=== PATIENT | male | born 1955 | race Caucasian/White ===

== ENCOUNTER 2016-07-08 18:25 | Emergency (ER) | payer SELFPAY ==
[~2016-07-08] VITALS: Ht 182.9 cm; Wt 95.0 kg
[2016-07-08 18:26] VITALS: BP 144/97; PULSE 104; RESP 14; TEMP 101.4; O2SAT 94
== END 2016-07-08 20:18 | disposition left against medical advice (07) ==
LOC: NED 18:25
DX: I10 Essential (primary) hypertension (principal)
CPT/HCPCS: 99281

== ENCOUNTER 2016-07-09 06:57 | Inpatient (IN) | payer BC ==
[~2016-07-09] VITALS: Ht 180.3 cm; Wt 93.4 kg
[2016-07-09] VITALS (8 sets, daily range): BP systolic 128–158; BP diastolic 66–89; PULSE 67–91; RESP 16–22; TEMP 98–99.6; O2SAT 95–98
[2016-07-09 07:42] LABS: AUTOMATED NEUTROPHIL # 9.1 TH/MM3 (1.8-7.7); BASOPHIL # 0.1 TH/MM3 (0-0.2); BASOPHIL % 0.6 % (0.0-2.0); EOSINOPHIL # 0.1 TH/MM3 (0-0.4); EOSINOPHIL % 0.7 % (0.0-4.0); HEMATOCRIT 43.4 % (39.0-51.0); HEMO FLAGS DIFF FINAL; LYMPH % 11.5 % (9.0-44.0); LYMPHOCYTE # 1.4 TH/MM3 (1.0-4.8); MEAN CORPUSCULAR HEMOGLOBIN 30.4 PG (27.0-34.0); MEAN CORPUSCULAR HGB CONC 34.9 % (32.0-36.0); MONO % 9.9 % (0.0-8.0); NEUT % 77.3 % (16.0-70.0); PLATELET COUNT 244 TH/MM3 (150-450); RED BLOOD COUNT 4.99 MIL/MM3 (4.50-5.90); WHITE BLOOD COUNT 11.8 TH/MM3 (4.0-11.0)
[2016-07-09 07:52] LABS: ALT (GPT) 223 U/L (12-78); ANION GAP 9 MEQ/L (5-15); AST (GOT) 155 U/L (15-37); BICARBONATE 24.3 MEQ/L (21.0-32.0); BLOOD UREA NITROGEN 9 MG/DL (7-18); CHLORIDE 97 MEQ/L (98-107); GLOMERULAR FILTRATION RATE 57 ML/MIN (>89); POTASSIUM 3.9 MEQ/L (3.5-5.1); SODIUM (NA) 130 MEQ/L (136-145)
[2016-07-09 07:54] LABS: ALKALINE PHOSPHATASE 130 U/L (45-117); TOTAL BILIRUBIN ADULT 9.9 MG/DL (0.2-1.0)
[2016-07-09 08:07] LABS: BACTERIA, URINE RARE /hpf; BLOOD, URINE SMALL (NEG); GLUCOSE,URINE 70 mg/dL (NEG); GRANULAR CAST, URINE 3 /lpf; HYALINE CAST, URINE 42 /lpf (RARE); KETONE, URINE 10 mg/dL (NEG); MUCUS URINE MOD /lpf (OCC); NITRITE,URINE NEG (NEG); SQUAMOUS EPITHELIAL CELL URINE 1 /hpf (0-5)
[2016-07-09 08:15] LABS: URINE COLOR AMBER (YELLW/STRAW)
[2016-07-09 08:16] LABS: COMMENT (UR) CULT NOT INDICATED; CULTURE IF INDICATED CULT NOT INDICATED
--- NOTE | 2016-07-09 10:57 | RADRPT ---
EXAM DATE/TIME: 07/09/2016 09:53 [facility] COMPARISON: No previous studies available for comparison. INDICATIONS : Right upper quandrant pain. MEDICAL HISTORY : Hypertension. Fever. SURGICAL HISTORY : None. ENCOUNTER: Initial ACUITY: 4-6 months PAIN SCORE: 0/10 LOCATION: Right upper quadrant MEASUREMENTS: LIVER: 17.4 cm length COMMON DUCT: 4 mm RIGHT KIDNEY: 10.8 x 7.0 x 6.4 cm FINDINGS: LIVER: Echogenic liver suggesting fatty infiltration. COMMON DUCT: No intraluminal mass or stone visualized. GALLBLADDER: 2 gallstones evident and otherwise benign appearing gallbladder. PANCREAS: Obscured by bowel gas RIGHT KIDNEY: No evidence of hydronephrosis, stone, or mass. CONCLUSION: Gallstones otherwise an negative appearing gallbladder. Trace fluid in right upper q uadrant. Pillo Chen MD FACR on July 09, 2016 at 10:55 Board Certified Radiologist. This report was verified electronically.
[2016-07-09] MEDS ORDERED: AMPICILLIN-SULBACTAM INJ 3 GM in SODIUM CHLORIDE 0.9% INJ 100 ML IV ONE (11:00)
[2016-07-09] MEDS ORDERED: IOHEXOL 350 MG/ML 10 ML VIAL (for RAD DIAG) IV ONE (11:04)
--- NOTE | 2016-07-09 11:23 | PD ---
HPI Chief Complaint: Abdominal Pain Time Seen by Provider: 09:34 Travel History International Travel<30 days: No Contact w/Intl Traveler<30days: No Traveled to known affect area: No History of Present Illness HPI Patient is a 7-year-old male presents emergency department for intermittent right upper quadrant abdominal pain for the past month associated with intermittent fevers. Patient states he went to an urgent care yesterday had a fever of 101.5 and was referred to emergency department for further workup. On arrival here he states the wait was too long and decided to leave without being seen. He returns this morning for evaluation. Patient is also been concerned because he's had very dark urine. He states anytime he eats any food his pain is worsened. Denies any previous liver issues denies any Tylenol ingestion. PFSH Past Medical History Cardiovascular Problems: Yes (HTN) Diminished Hearing: No GERD: Yes Hypertension: Yes Tetanus Vaccination: > 5 Years Influenza Vaccination: No Social History Alcohol Use: Yes (4 x a week) Tobacco Use: No Substance Use: No Allergies-Medications (Allergen,Severity, Reaction): Coded Allergies: No Known Allergies (Unverified , 07/09/16) Reported Meds & Prescriptions Reported Meds & Active Scripts Active No Active Prescriptions or Reported Medications Review of Systems Except as stated in HPI: all other systems reviewed are Neg Physical Exam Narrative GENERAL: Well-developed well-nourished in no apparent distress. SKIN: Warm and dry. HEAD: Atraumatic. Normocephalic. EYES: Pupils equal and round. Positive scleral icterus. No injection or drainage. ENT: No nasal bleeding or discharge. Mucous membranes pink and moist. NECK: Trachea midline. No JVD. CARDIOVASCULAR: Regular rate and rhythm. No murmur appreciated. RESPIRATORY: No accessory muscle use. Clear to auscultation. Breath sounds equal bilaterally. GASTROINTESTINAL: Abdomen soft, minimally tender in the right upper quadrant negative Queen sign. nondistended. Hepatic and splenic margins not palpable. No spider angiomata. MUSCULOSKELETAL: No obvious deformities. No clubbing. No cyanosis. No edema. NEUROLOGICAL: Awake and alert. No obvious cranial nerve deficits. Motor grossly within normal limits. Normal speech. PSYCHIATRIC: Appropriate mood and affect; insight and judgment normal. Data Data Last Documented VS Vital Signs Date Time Temp Pulse Resp B/P Pulse Ox O2 Delivery O2 Flow Rate FiO2 07/09/16 10:22 98 Room Air 07/09/16 09:33 72 20 156/82 07/09/16 06:59 99.0 Orders Complete Blood Count With Diff (07/09/16 07:12) Comprehensive Metabolic Panel (07/09/16 07:12) Urinalysis - C+S If Indicated (07/09/16 07:12) Iv Access Insert/Monitor (07/09/16 07:12) Oxygen Administration (07/09/16 07:12) Oximetry (07/09/16 07:12) Lipase (07/09/16 07:12) Ct Abd/Pel W Iv Contrast(Rout) (07/09/16 ) Ammonia (07/09/16 09:45) Lactic Acid (07/09/16 09:45) Us Abdomen Gallbladder (07/09/16 ) Blood Culture (07/09/16 09:46) Tylenol (Acetaminophen) (07/09/16 10:06) Ampicillin-Sulbactam Inj (Unasyn Inj) (07/09/16 11:00) Iohexol 350 Inj (Omnipaque 350 Inj) (07/09/16 11:04) Act Partial Throm Time (Ptt) (07/09/16 11:22) Prothrombin Time / Inr (Pt) (07/09/16 11:22) Admit Order (Ed Use Only) (07/09/16 ) Labs Laboratory Tests Test 07/09/16 07/09/16 07:23 10:15 White Blood Count 11.8 TH/MM3 Red Blood Count 4.99 MIL/MM3 Hemoglobin 15.2 GM/DL Hematocrit 43.4 % Mean Corpuscular Volume 87.0 FL Mean Corpuscular Hemoglobin 30.4 PG Mean Corpuscular Hemoglobin 34.9 % Concent Red Cell Distribution Width 14.0 % Platelet Count 244 TH/MM3 Mean Platelet Volume 9.0 FL Neutrophils (%) (Auto) 77.3 % Lymphocytes (%) (Auto) 11.5 % Monocytes (%) (Auto) 9.9 % Eosinophils (%) (Auto) 0.7 % Basophils (%) (Auto) 0.6 % Neutrophils # (Auto) 9.1 TH/MM3 Lymphocytes # (Auto) 1.4 TH/MM3 Monocytes # (Auto) 1.2 TH/MM3 Eosinophils # (Auto) 0.1 TH/MM3 Basophils # (Auto) 0.1 TH/MM3 CBC Comment DIFF FINAL Differential Comment Urine Color CHELSEA Urine Turbidity HAZY Urine pH 6.0 Urine Specific [place] 1.016 Urine Protein 30 mg/dL Urine Glucose (UA) 70 mg/dL Urine Ketones 10 mg/dL Urine Occult Blood SMALL Urine Nitrite NEG Urine Bilirubin MOD Urine Urobilinogen 2.0 MG/DL Urine Leukocyte Esterase NEG Urine RBC 1 /hpf Urine WBC 3 /hpf Urine Squamous Epithelial 1 /hpf Cells Urine Bacteria RARE /hpf Urine Hyaline Casts 42 /lpf Urine Granular Casts 3 /lpf Urine Mucus MOD /lpf Microscopic Urinalysis Comment CULT NOT INDICATED Sodium Level 130 MEQ/L Potassium Level 3.9 MEQ/L Chloride Level 97 MEQ/L Carbon Dioxide Level 24.3 MEQ/L Anion Gap 9 MEQ/L Blood Urea Nitrogen 9 MG/DL Creatinine 1.29 MG/DL Estimat Glomerular Filtration 57 ML/MIN Rate Random Glucose 151 MG/DL Calcium Level 9.0 MG/DL Iron Level 28 MCG/DL Total Iron Binding Capacity 304 MCG/DL Percent Iron Saturation 9.2 % Ferritin 1562 NG/ML Total Bilirubin 9.9 MG/DL Aspartate Amino Transf 155 U/L (AST/SGOT) Alanine Aminotransferase 223 U/L (ALT/SGPT) Alkaline Phosphatase 130 U/L Total Protein 7.9 GM/DL Albumin 3.5 GM/DL Lipase 172 U/L Acetaminophen Level LESS THAN 2.0 MCG/ML Lactic Acid Level 1.2 mmol/L Ammonia LESS THAN 10 MCMOL/L MDM Medical Decision Making Medical Screen Exam Complete: Yes Emergency Medical Condition: Yes Differential Diagnosis Ascending cholangitis, cholecystitis, acute hepatitis. Narrative Course Patient was roomed emergency department, he appears well in no apparent distress. He is minimally tender in the right upper quadrant with fever yesterday (no fevers here today) as well as jaundice. He was covered with Unasyn for possible ascending cholangitis. He does not meet SIRS criteria. Patient states he only has abdominal pain when he eats and is not having abdominal pain now. Patient was discussed with Dr. Casetllon for admission for new onset liver failure as well as inflammatory changes surrounding the liver and possible diverticulitis at hepatic flexure. Last 24 hours Impressions Gall Bladder Ultrasound 07/09/16 0000 Signed Impressions: Service Date/Time: Saturday, July 09, 2016 09:53 - CONCLUSION: Gallstones otherwise an negative appearing gallbladder. Trace fluid in right upper quadrant. Pillo Chen MD FACR Abdomen/Pelvis CT 07/09/16 0000 Signed Impressions: Service Date/Time: Saturday, July 09, 2016 11:02 - CONCLUSION: 1. Pericolic inflammatory changes in the region of the hepatic flexure with focal wall thickening and apparent inflamed diverticulum consistent with acute diverticulitis of the hepatic flexure. No pericolic abscess is noted. 2. Enlarged fatty liver. 3. Cholelithiasis. 4. Enlarged prostate. 5. 18 mm nonspecific mass within the inferior aspect of the spleen. 6. Fibrotic scarring and/or atelectasis within the right lung base. Brock Orta MD Diagnosis Primary Impression: Acute liver failure Qualified Code: K72.00 - Acute liver failure without hepatic coma Additional Impressions: Acute diverticulitis Fever Admitting Information Admitting Physician Requests: Admit Scripts No Active Prescriptions or Reported Meds Condition: Stable Brock Rg MD Jul 09, 2016 11:23
--- NOTE | 2016-07-09 11:26 | RADRPT ---
EXAM DATE/TIME: 07/09/2016 11:02 [facility] COMPARISON: US ABDOMEN - GALLBLADDER, July 09, 2016, 9:53. INDICATIONS : Intermittent upper abdominal pain x 6 months. IV CONTRAST: 80 cc Omnipaque 350 (iohexol) IV ORAL CONTRAST: No oral contrast ingested. RADIATION DOSE: 8.59 CTDIvol (mGy) MEDICAL HISTORY : Gastroesophageal reflux disease. Hypertension. SURGICAL HISTORY : None. ENCOUNTER: Initial ACUITY: 4 - 6 months PAIN SCALE: 2/10 LOCATION: Right upper quadrant TECHNIQUE: Volumetric scanning of the abdomen and pelvis was performed. Using automated exposure control and ad justment of the mA and/or kV according to patient size, radiation dose was kept as low as reasonably achievable to obtain optimal diagnostic quality images. FINDINGS: LOWER LUNGS: Fibrotic scarring and/or atelectasis is noted within the right lung base. LIVER: There is diffuse fatty infiltration of the enlarged liver without focal lesion. There is no dilation of the biliary tree. The gallbladder is nondistended and contains calcified stones.. SPLEEN: There is an 18 mm nonspecific mass within the inferior aspect of the spleen. PANCREAS: Within normal limits. KIDNEYS: Normal in size and shape. There is no mass, stone or hydronephrosis. ADRENAL GLANDS: Within normal limits. VASCULAR: There is no aortic aneurysm. BOWEL/MESENTERY: There is pericolic inflammatory changes in the region of the hepatic flexure with focal wall thickeni ng and apparent inflamed diverticulum consistent with acute diverticulitis of the hepatic flexure. No pericolic abscess is noted. The appendix is normal. ABDOMINAL WALL: Within normal limits. RETROPERITONEUM: There is no lymphadenopathy. BLADDER: No wall thickening or mass. REPRODUCTIVE: The prostate gland is enlarged. INGUINAL: There is no lymphadenopathy or hernia. MUSCULOSKELETAL: Within normal limits for patient age. CONCLUSION: 1. Pericolic inflammatory changes in the region of the hepatic flexure with focal wall thickening and apparent inflamed diverticulum consistent with acute diverticulitis of the hepatic flexure. No peric olic abscess is noted. 2. Enlarged fatty liver. 3. Cholelithiasis. 4. Enlarged prostate. 5. 18 mm nonspecific mass within the inferior aspect of the spleen. 6. Fibrotic scarring and/or atelectasis within the right lung base. Brock Orta MD on July 09, 2016 at 11:15 Board Certified Radiologist. This report was verified electronically.
[2016-07-09] MEDS ORDERED: ACETAMINOPHEN 325 MG TAB PO PRN ×2 (12:30)
[2016-07-09] MEDS ORDERED: NALOXONE HCL 0.4 MG/ML AMP IV PRN (12:30)
[2016-07-09] MEDS ORDERED: MORPHINE SULFATE 4 MG/ML INJ IV PRN (12:30)
[2016-07-09] MEDS ORDERED: SODIUM CHLORIDE 0.9% FLUSH 5 ML FLUSH FLUSH PRN (12:30)
[2016-07-09] MEDS ORDERED: MAGNESIUM HYDROXIDE SUSP 30 ML CUP PO PRN (13:00)
[2016-07-09] MEDS ORDERED: ONDANSETRON HCL 4 MG/2 ML VIAL IVP PRN (13:00)
[2016-07-09 13:13] LABS: APTT (PATIENT) 26.9 SEC (24.3-30.1); INTERNATIONAL NORMALIZED RATIO 1.1 RATIO; PROTHROMBIN TIME - PATIENT 12.4 SEC (9.8-11.6)
[2016-07-09] MEDS: ENOXAPARIN SODIUM 40 MG/0.4 ML SYRINGE SQ SCH (14:35)
[2016-07-09] MEDS: SODIUM CHLOR 0.9% 1000 ML INJ 1,000 ML IV SCH ×2 (14:35→21:36)
--- NOTE | 2016-07-09 16:32 | PD.CONS ---
HPI History of Present Illness This is a 61 year old who was referred from a walk in clinic for evaluation of abdominal pain, jaundice, and fevers. The patient reports that both him and his fiance have been fighting flu-like symptoms with generalized malaise, fatigue, and intermittent fevers for the past month. Prior to that, the patient reports that he has been having intermittent nausea, vomiting, and epigastric pain for the past 6-8 months. He reports that the pain is a pressure like pain in his epigastric area that radiates to his RUQ with intermittent nausea/vomiting. He was also have reflux with this and states that his symptoms were much worse if he had any acidic foods such as marinara and when he would lay down at night. His notes that this also seems to be happening more on the weekends, when he does drink ETOH. He started taking Prilosec and he does note that his symptoms have been much better since starting this. He reports that he had a big ice cream [id number] brownie and then went to bed after the game. He woke up that night with severe epigastric pain radiating to his RUQ. He did not have any nausea or vomiting with this. He had a few loose stools last week, but states that he does tend to have "soft stools" as long as he can remember. He has not seen any blood or mucous in his stool. He denies any weight loss. He does drink about 6-7 beers per day on the weekends and also drinks a few alcoholic drinks on and Fridays. He reports that he was told many years ago that he had mildly elevated LFTs but denies ever being told that he has liver cirrhosis or hepatitis. He denies having any hepatitis, tattoo's, hx of IVDA, blood transfusions. He denies any family hx of liver disease. He has been taking Dayquil and Nyquil- always as prescribed, but has taken this on the weekend while he was drinking. He also took Tylenol pm for a few nights for joing and back pain. He does not take any herbal supplements. (Gela Flynn) PFSH Past Medical History GERD HTN Fatty liver Hx of elevated LFTs Past Surgical History Right bunionectomy (Gela Flynn) Coded Allergies: No Known Allergies (Unverified , 07/09/16) Medications Allergies Coded Allergies Type Severity Reaction Last Updated Verified No Known Allergies 07/09/16 No Active Scripts Medications Dose Route/Sig Days Date Category No Active Prescriptions or Reported Medications Rx Family History Brother CAD Mother from stroke Father from complications from diabetes. Social History No tobacco (Gela Flynn) Review of Systems Constitutional: COMPLAINS OF: Fatigue, Fever, Chills, DENIES: Weight loss Respiratory: DENIES: Cough Cardiovascular: DENIES: Chest pain Gastrointestinal: COMPLAINS OF: Abdominal pain, Diarrhea (loose/soft stools), Nausea, Vomiting, Heartburn, DENIES: Black stools, Bloody stools, Constipation , Hematemesis Musculoskeletal: COMPLAINS OF: Joint pain, Back pain Integumentary: COMPLAINS OF: Abnormal pigmentation, Jaundice, DENIES: Pruritus Hematologic/lymphatic: DENIES: Bruising Neurologic: COMPLAINS OF: Headache Psychiatric: DENIES: Confusion (Gela Flynn) GI Exam Vitals I&O Vital Signs Date Time Temp Pulse Resp B/P Pulse Ox O2 Delivery O2 Flow Rate FiO2 07/09/16 14:30 72 22 156/84 96 Room Air 07/09/16 12:30 72 17 129/72 96 Room Air 07/09/16 10:22 98 Room Air 07/09/16 09:33 72 20 156/82 97 Room Air 07/09/16 06:59 99.0 91 16 146/89 95 Imaging Last Impressions Gall Bladder Ultrasound 07/09/16 0000 Signed Impressions: Service Date/Time: Saturday, July 09, 2016 09:53 - CONCLUSION: Gallstones otherwise an negative appearing gallbladder. Trace fluid in right upper quadrant. Pillo Chen MD FACR Abdomen/Pelvis CT 07/09/16 0000 Signed Impressions: Service Date/Time: Saturday, July 09, 2016 11:02 - CONCLUSION: 1. Pericolic inflammatory changes in the region of the hepatic flexure with focal wall thickening and apparent inflamed diverticulum consistent with acute diverticulitis of the hepatic flexure. No pericolic abscess is noted. 2. Enlarged fatty liver. 3. Cholelithiasis. 4. Enlarged prostate. 5. 18 mm nonspecific mass within the inferior aspect of the spleen. 6. Fibrotic scarring and/or atelectasis within the right lung base. Brock Orta MD Laboratory Test 07/09/16 07/09/16 07/09/16 07:23 10:15 12:40 White Blood Count 11.8 TH/MM3 Red Blood Count 4.99 MIL/MM3 Hemoglobin 15.2 GM/DL Hematocrit 43.4 % Mean Corpuscular Volume 87.0 FL Mean Corpuscular Hemoglobin 30.4 PG Mean Corpuscular Hemoglobin 34.9 % Concent Red Cell Distribution Width 14.0 % Platelet Count 244 TH/MM3 Mean Platelet Volume 9.0 FL Neutrophils (%) (Auto) 77.3 % Lymphocytes (%) (Auto) 11.5 % Monocytes (%) (Auto) 9.9 % Eosinophils (%) (Auto) 0.7 % Basophils (%) (Auto) 0.6 % Neutrophils # (Auto) 9.1 TH/MM3 Lymphocytes # (Auto) 1.4 TH/MM3 Monocytes # (Auto) 1.2 TH/MM3 Eosinophils # (Auto) 0.1 TH/MM3 Basophils # (Auto) 0.1 TH/MM3 CBC Comment DIFF FINAL Differential Comment Urine Color CHELSEA Urine Turbidity HAZY Urine pH 6.0 Urine Specific [place] 1.016 Urine Protein 30 mg/dL Urine Glucose (UA) 70 mg/dL Urine Ketones 10 mg/dL Urine Occult Blood SMALL Urine Nitrite NEG Urine Bilirubin MOD Urine Urobilinogen 2.0 MG/DL Urine Leukocyte Esterase NEG Urine RBC 1 /hpf Urine WBC 3 /hpf Urine Squamous Epithelial 1 /hpf Cells Urine Bacteria RARE /hpf Urine Hyaline Casts 42 /lpf Urine Granular Casts 3 /lpf Urine Mucus MOD /lpf Microscopic Urinalysis Comment CULT NOT INDICATED Sodium Level 130 MEQ/L Potassium Level 3.9 MEQ/L Chloride Level 97 MEQ/L Carbon Dioxide Level 24.3 MEQ/L Anion Gap 9 MEQ/L Blood Urea Nitrogen 9 MG/DL Creatinine 1.29 MG/DL Estimat Glomerular Filtration 57 ML/MIN Rate Random Glucose 151 MG/DL Calcium Level 9.0 MG/DL Total Bilirubin 9.9 MG/DL Aspartate Amino Transf 155 U/L (AST/SGOT) Alanine Aminotransferase 223 U/L (ALT/SGPT) Alkaline Phosphatase 130 U/L Total Protein 7.9 GM/DL Albumin 3.5 GM/DL Lipase 172 U/L Acetaminophen Level LESS THAN 2.0 MCG/ML Lactic Acid Level 1.2 mmol/L Ammonia LESS THAN 10 MCMOL/L Prothrombin Time 12.4 SEC Prothromb Time International 1.1 RATIO Ratio Activated Partial 26.9 SEC Thromboplast Time Date/Time Procedure Status Source Growth 07/09/16 10:20 Aerobic Blood Culture Received Blood Peripheral Pending 07/09/16 10:20 Anaerobic Blood Culture Received Blood Peripheral Pending Physical Examination HEENT: Normocephalic; atraumatic; + jaundice. CHEST: CTA CARDIAC: RRR. ABDOMEN: Soft, nondistended, mild ruq/epigastric; no hepatosplenomegaly; bowel sounds are present in all four quadrants. EXTREMITIES: No clubbing, cyanosis, or edema. SKIN: + jaundice. INFORMATION TECH: No focal deficits; alert and oriented times three. (Gela Flynn) Assessment and Plan Plan ASSESSMENT: - Acute diverticulitis. CT with pericolic inflammatory changes in the region of the hepatic flexure with focal wall thickening and apparent inflamed diverticulum consistent with acute diverticulitis of the hepatic flexure. No pericolic abscess is noted. Will add Flagyl/Levaquin. - Elevated LFTs. Gall Bladder Ultrasound (07/09/16)----> Gallstones otherwise an negative appearing gallbladder. Trace fluid in right upper quadrant. Abdomen/Pelvis CT (07/09/16)----> 1. Pericolic inflammatory changes in the region of the hepatic flexure with focal wall thickening and apparent inflamed diverticulum consistent with acute diverticulitis of the hepatic flexure. No pericolic abscess is noted. 2. Enlarged fatty liver. 3. Cholelithiasis. 4. Enlarged prostate. 5. 18 mm nonspecific mass within the inferior aspect of the spleen. 6. Fibrotic scarring and/or atelectasis within the right lung base. Recent Tylenol use with ETOH, but recommended dose. Acetaminophen < 2.0. LFT T. Bili 9.9, AST 155, ALT 223, ALK phosph 130. Check Hepatitis panel, liver workup. - Abdominal pain. Improved. Likely related to above. - Fevers. T. Max 101. BCx pending. - GERD. Add PPI - Mild leukocytosis. WBC 11.8. - Generalized malaise, fatigue, fevers x 1 month. Reports fiance with these symptoms also. No recent travel, suspicious food. They eat shrimp once a week , no other shellfish. No ivda, tattoos. PLAN: - Clear liquids - Add Flagyl/Levaquin - Add PPI - Hepatitis panel - AFP level - ELMER, ASMA, AMA - Ferritin, Iron Saturation - Alpha 1 Antitrypsin, Ceruloplasmin - CBC, CMP in am - MRCP - Supportive care - Further recommendations to follow based on results of above - Pt seen and examined by Dr. 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 Check MRCP. Antibiotics. Will follow.Thank you (Celeste Del Valle MD) Gela Flynn Jul 09, 2016 16:31 Celeste Del Valle MD Jul 10, 2016 16:28
[2016-07-09] MEDS: PANTOPRAZOLE SODIUM 40 MG VIAL IV PUSH SCH (18:06)
[2016-07-09] MEDS: LEVOFLOXACIN 500 MG PREMIX INJ 100 ML IV SCH (18:07)
[2016-07-09 18:14] LABS: FERRITIN 1562 NG/ML (26-388); TRANSFERRIN IRON PROFILE 217 MG/DL (200-360)
--- NOTE | 2016-07-09 18:55 | HHI.HP ---
[facility] Primary Care Physician No Primary Care Physician Admission Diagnosis Acute Liver failure, Diverticulitis. Diagnoses: (1) Acute liver failure Diagnosis: Principal (2) Acute diverticulitis Diagnosis: Principal Chief Complaint: Fevers, yellowing of the eyes, abdominal pain Travel History International Travel<30 Days: No Contact w/Intl Traveler <30 Da: No Traveled to Known Affected Are: No History of Present Illness 61-year-old white male with history of GERD was referred to the emergency room by his urgent care physician after having symptoms of worsening yellowing eyes and dark urine that happened during the past 24 hours. Prior to that patient has been struggling the past 6-8 months having a nonspecific epigastric abdominal pain radiating towards his right upper quadrant associated with vomiting which would last a period of 3-4 days and resolve on its own. This has happened 4 times in the past 6-8 months. He has not had any extensive abdominal pain workup in the past. He reports some few episodes of diarrhea along with associated nausea and nonbilious vomiting. He also reports generalized muscle aches and joint aches. He has not been taking any over-the- counter medications other than Prilosec and recent [place] for upper respiratory infection. In addition, he does not drink alcohol on daily basis but does drink a little heavier during the weekends. Review of Systems Constitutional: COMPLAINS OF: Fever, Chills, Change in appetite, DENIES: Fatigue Endocrine: DENIES: Heat/cold intolerance Eyes: DENIES: Blurred vision, Eye pain, Vision loss Ears, nose, mouth, throat: DENIES: Hearing loss, Nasal discharge, Throat pain, Ear Pain, Sinus Pain Respiratory: DENIES: Cough, Shortness of breath Cardiovascular: DENIES: Chest pain, Palpitations, Dyspnea on Exertion, Lower Extremity Edema Gastrointestinal: COMPLAINS OF: Abdominal pain, Diarrhea, Nausea, Vomiting, DENIES: Black stools, Bloody stools, Constipation Musculoskeletal: DENIES: Joint pain, Muscle aches, Stiffness Integumentary: DENIES: Rash Hematologic/lymphatic: DENIES: Bruising, Lymphadenopathy Immunologic/allergic: DENIES: Eczema Neurologic: DENIES: Headache, Localized weakness, Paresthesias Psychiatric: DENIES: Anxiety, Depression, Suicidal Ideation Other Yellowing of the eyes, dark urine. Past Family Social History Past Medical History GERD HTNnot on any antihypertensives Fatty liver Hx of elevated LFTs Past Surgical History Right bunionectomy Reported Medications Umkg-pdn-ovxygqu DayQuil Nwgl-shh-lkvcgup Prilosec Allergies: Coded Allergies: No Known Allergies (Unverified , 07/09/16) Family History Brother CAD Mother from stroke Father from complications from diabetes. Social History No tobacco Does drink alcohol but not daily heavily. Physical Exam Vital Signs Vital Signs Date Time Temp Pulse Resp B/P Pulse Ox O2 Delivery O2 Flow Rate FiO2 07/09/16 17:03 98.0 86 17 128/72 98 Room Air 07/09/16 16:30 67 17 141/66 96 Room Air 07/09/16 14:30 72 22 156/84 96 Room Air 07/09/16 12:30 72 17 129/72 96 Room Air 07/09/16 10:22 98 Room Air 07/09/16 09:33 72 20 156/82 97 Room Air 07/09/16 06:59 99.0 91 16 146/89 95 Physical Exam GENERAL: This is a well-nourished, well-developed patient, in no apparent distress. SKIN: No rashes, ecchymoses or lesions. Cool and dry. HEAD: Atraumatic. Normocephalic. No temporal or scalp tenderness. EYES: Pupils equal round and reactive. Extraocular motions intact. No scleral icterus. No injection or drainage. ENT: Nose without bleeding, purulent drainage or septal hematoma. Throat without erythema, tonsillar hypertrophy or exudate. Uvula midline. Airway patent. NECK: Trachea midline. No JVD or lymphadenopathy. Supple, nontender, no meningeal signs. CARDIOVASCULAR: Regular rate and rhythm without murmurs, gallops, or rubs. RESPIRATORY: Clear to auscultation. Breath sounds equal bilaterally. No wheezes , rales, or rhonchi. GASTROINTESTINAL: Abdomen soft, right mid and upper quadrant tenderness on palpation with no rebound or guarding, nondistended, normoactive bowel sounds. MUSCULOSKELETAL: Extremities without clubbing, cyanosis, or edema. NEUROLOGICAL: Awake and alert to person place time and situation. Cranial nerves II through XII intact. Motor and sensory grossly within normal limits. Five out of 5 muscle strength in all muscle groups. Normal speech. Laboratory Laboratory Tests Test 07/09/16 07/09/16 07/09/16 07:23 10:15 12:40 White Blood Count 11.8 Red Blood Count 4.99 Hemoglobin 15.2 Hematocrit 43.4 Mean Corpuscular Volume 87.0 Mean Corpuscular Hemoglobin 30.4 Mean Corpuscular Hemoglobin 34.9 Concent Red Cell Distribution Width 14.0 Platelet Count 244 Mean Platelet Volume 9.0 Neutrophils (%) (Auto) 77.3 Lymphocytes (%) (Auto) 11.5 Monocytes (%) (Auto) 9.9 Eosinophils (%) (Auto) 0.7 Basophils (%) (Auto) 0.6 Neutrophils # (Auto) 9.1 Lymphocytes # (Auto) 1.4 Monocytes # (Auto) 1.2 Eosinophils # (Auto) 0.1 Basophils # (Auto) 0.1 CBC Comment DIFF FINAL Differential Comment Urine Color [place] Urine Turbidity HAZY Urine pH 6.0 Urine Specific [place] 1.016 Urine Protein 30 Urine Glucose (UA) 70 Urine Ketones 10 Urine Occult Blood SMALL Urine Nitrite NEG Urine Bilirubin MOD Urine Urobilinogen 2.0 Urine Leukocyte Esterase NEG Urine RBC 1 Urine WBC 3 Urine Squamous Epithelial 1 Cells Urine Bacteria RARE Urine Hyaline Casts 42 Urine Granular Casts 3 Urine Mucus MOD Microscopic Urinalysis Comment CULT NOT INDICATED Sodium Level 130 Potassium Level 3.9 Chloride Level 97 Carbon Dioxide Level 24.3 Anion Gap 9 Blood Urea Nitrogen 9 Creatinine 1.29 Estimat Glomerular Filtration 57 Rate Random Glucose 151 Calcium Level 9.0 Iron Level 28 Total Iron Binding Capacity 304 Percent Iron Saturation 9.2 Ferritin 1562 Total Bilirubin 9.9 Aspartate Amino Transf 155 (AST/SGOT) Alanine Aminotransferase 223 (ALT/SGPT) Alkaline Phosphatase 130 Total Protein 7.9 Albumin 3.5 Lipase 172 Acetaminophen Level LESS THAN 2.0 Lactic Acid Level 1.2 Ammonia LESS THAN 10 Prothrombin Time 12.4 Prothromb Time International 1.1 Ratio Activated Partial 26.9 Thromboplast Time Date/Time Procedure Status Source Growth 07/09/16 10:20 Aerobic Blood Culture Received Blood Peripheral Pending 07/09/16 10:20 Anaerobic Blood Culture Received Blood Peripheral Pending Result Diagram: 07/09/1672207/09/16 0723 Imaging Last Impressions Gall Bladder Ultrasound 2/8/17 0000 Signed Impressions: Service Date/Time: Saturday, July 09, 2016 09:53 - CONCLUSION: Gallstones otherwise an negative appearing gallbladder. Trace fluid in right upper quadrant. Pillo Chen MD FACR Abdomen/Pelvis CT 07/09/16 0000 Signed Impressions: Service Date/Time: Saturday, July 09, 2016 11:02 - CONCLUSION: 1. Pericolic inflammatory changes in the region of the hepatic flexure with focal wall thickening and apparent inflamed diverticulum consistent with acute diverticulitis of the hepatic flexure. No pericolic abscess is noted. 2. Enlarged fatty liver. 3. Cholelithiasis. 4. Enlarged prostate. 5. 18 mm nonspecific mass within the inferior aspect of the spleen. 6. Fibrotic scarring and/or atelectasis within the right lung base. Brock Orta MD Assessment and Plan Problem List: (1) Acute liver failure ICD Code: K72.00 Status: Acute (2) Acute diverticulitis ICD Code: K57.92 Status: Acute Assessment and Plan 1. Acute liver failure -GI consultation assistance with workup for etiology. Check hepatitis panel, AFP level, ELMER, ASMA, AMA, Ferritin, Iron Saturation, Alpha 1 Antitrypsin, and, Ceruloplasmin, MRCP recommended also by GI. Monitor hepatic function tests. 2. Acute diverticulitiscontinue IV antibiotics, Flagyl and Levaquincontinue with pain control, further recommendation per GI. Clear liquids as tolerated, continue with IV fluid hydration supportive care 3. DVT prophylaxisLovenox Physician Certification 2 Midnight Certification Type: Admission for Inpatient Services Order for Inpatient Services The services are ordered in accordance with Medicare regulations or non- Medicare payer requirements, as applicable. In the case of services not specified as inpatient-only, they are appropriately provided as inpatient services in accordance with the 2-midnight benchmark. Estimated LOS (days): 3 days is the estimated time the patient will need to remain in the hospital, assuming treatment plan goals are met and no additional complications. Post-Hospital Plan: Home Erinn Alford MD Jul 09, 2016 18:54
[2016-07-09] MEDS: SODIUM CHLORIDE 0.9% FLUSH 5 ML FLUSH FLUSH SCH (21:00)
[2016-07-09] MEDS ORDERED: ZOLPIDEM TARTRATE 5 MG TAB PO PRN (21:00)
[2016-07-09] MEDS: metroNIDAZOLE 500 MG INJ 100 ML IV SCH (21:36)
[2016-07-10] VITALS (7 sets, daily range): BP systolic 123–167; BP diastolic 73–91; PULSE 68–91; RESP 18; TEMP 97.4–100.1; O2SAT 94–96
[2016-07-10] MEDS: metroNIDAZOLE 500 MG INJ 100 ML IV SCH ×3 (04:57→20:07)
[2016-07-10 06:12] LABS: AUTOMATED NEUTROPHIL # 5.3 TH/MM3 (1.8-7.7); BASOPHIL % 0.6 % (0.0-2.0); EOSINOPHIL # 0.1 TH/MM3 (0-0.4); EOSINOPHIL % 1.8 % (0.0-4.0); HEMATOCRIT 39.4 % (39.0-51.0); HEMO FLAGS DIFF FINAL; LYMPH % 12.5 % (9.0-44.0); LYMPHOCYTE # 0.9 TH/MM3 (1.0-4.8); MEAN CELL VOLUME 87.4 FL (80.0-100.0); MEAN CORPUSCULAR HEMOGLOBIN 30.7 PG (27.0-34.0); MEAN CORPUSCULAR HGB CONC 35.1 % (32.0-36.0); MONO % 10.5 % (0.0-8.0); NEUT % 74.6 % (16.0-70.0); PLATELET COUNT 204 TH/MM3 (150-450); RED BLOOD COUNT 4.51 MIL/MM3 (4.50-5.90); WHITE BLOOD COUNT 7.1 TH/MM3 (4.0-11.0)
[2016-07-10 06:50] LABS: ALKALINE PHOSPHATASE 118 U/L (45-117); ALT (GPT) 200 U/L (12-78); ANION GAP 10 MEQ/L (5-15); AST (GOT) 119 U/L (15-37); BICARBONATE 22.9 MEQ/L (21.0-32.0); BLOOD UREA NITROGEN 8 MG/DL (7-18); CHLORIDE 101 MEQ/L (98-107); GLOMERULAR FILTRATION RATE 75 ML/MIN (>89); POTASSIUM 3.8 MEQ/L (3.5-5.1); SODIUM (NA) 134 MEQ/L (136-145)
[2016-07-10] MEDS: SODIUM CHLOR 0.9% 1000 ML INJ 1,000 ML IV SCH ×2 (08:40→17:28)
[2016-07-10] MEDS: SODIUM CHLORIDE 0.9% FLUSH 5 ML FLUSH FLUSH SCH ×2 (08:40→20:07)
[2016-07-10] MEDS ORDERED: INFLUENZA VIRUS VACCINE (QUADRIVALENT) 0.5 ML SYR IM ONE (10:00)
[2016-07-10] MEDS ORDERED: PNEUMOCOCCAL POLYVALENT INJ 25 MCG/0.5 ML SYR IM ONE (10:00)
--- NOTE | 2016-07-10 10:22 | RADRPT ---
EXAM DATE/TIME: 07/10/2016 08:00 [place] COMPARISON: US ABDOMEN - GALLBLADDER, July 09, 2016, 9:53. CT ABDOMEN & PELVIS W CONTRAST, July 09, 2016 , 11:02. INDICATIONS : Jaundice. Intermittent right upper abdominal pain for [address] from yesterday demonstrat ing cholelithiasis, pericolic inflammatory change, fatty liver and 18 mm mass in the spleen. MEDICAL HISTORY : Hypertension. SURGICAL HISTORY : Right bunionectomy. ENCOUNTER: Subsequent ACUITY: 2 day PAIN SCORE: 0/10 LOCATION: abdomen. TECHNIQUE: Multiplanar, multisequence magnetic resonance imaging of the abdomen was performed. High-resolution 3D dataset was utilized to reconstruct maximum-intensity projection (MIP) images. FINDINGS: INTRAHEPATIC BILE DUCTS: Within normal limits. No significant anatomical variant is present. EXTRAHEPATIC BILE DUCTS: The common bile duct measures 6 mm No stone or filling defect is identified. GALLBLADDER: There are multiple gallstones again noted in the gallbladder there is mild gallbladder wall thickenin g measuring up to approximately 5 mm in size. There is surrounding inflammatory change in the right u pper quadrant. LIVER: The liver appears at the upper limits of normal in size with diffuse fatty infiltration. There is no focal mass. PANCREAS: The main pancreatic duct is normal in size. There is no significant anatomical variant. Signal inte nsity is within normal limits. No mass is visualized on this non-contrast exam. OTHER: A small to moderate size duodenal diverticulum is noted measuring up to approximately 1.6 x 1.2 cm. I nflammatory changes again noted in the right upper quadrant adjacent to the hepatic flexure. There is no drainable fluid collection. There is a 1.7 cm subtle focal area of increased signal noted in the lower spleen corresponding to the abnormality seen on CT. There are additional smaller focal areas of increased signal on the T2-weighted sequences CONCLUSION: 1. Cholelithiasis again noted with mild gallbladder wall thickening. There is adjacent inflammatory c hange in the right upper quadrant. 2. Inflammatory change remains in the right upper quadrant adjacent to the hepatic flexure. 3. There are multiple high signal structures in the spleen which are not well-visualized. These are n onspecific but likely represent cavernous hemangiomas. The study was performed without intravenous co ntrast. 4. No evidence of biliary obstruction. The common bile duct is well visualized is within normal limit s with no filling defects. 5. Fatty infiltration of the liver is again noted. 6. Small to moderate sized duodenal diverticulum. Neftali Jacobson MD on July 10, 2016 at 10:09 Board Certified Radiologist. This report was verified electronically.
--- NOTE | 2016-07-10 12:17 | HHI.PR ---
Subjective Remarks Feeling better. Tolerating his clear liquid diet. No further abdominal pain. Wants to try some solid food. No fevers or chills. No nausea or vomiting. Objective Vitals Vital Signs Date Time Temp Pulse Resp B/P Pulse Ox O2 Delivery O2 Flow Rate FiO2 07/10/16 08:00 Room Air 07/10/16 08:00 100.1 68 18 167/88 95 07/10/16 04:30 156/82 07/10/16 04:00 97.7 71 18 167/87 95 07/10/16 00:28 97.9 70 18 145/91 96 07/09/16 20:00 99.6 71 18 158/80 97 07/09/16 20:00 Room Air 07/09/16 17:03 98.0 86 17 128/72 98 Room Air 07/09/16 16:30 67 17 141/66 96 Room Air 07/09/16 14:30 72 22 156/84 96 Room Air 07/09/16 12:30 72 17 129/72 96 Room Air I/O 07/09/16 07/09/16 07/09/16 07/10/16 07/10/16 07/10/16 07:00 15:00 23:00 07:00 15:00 23:00 Intake Total 500 ml 1954 ml Balance 500 ml 1954 ml Intake Oral 500 ml 600 ml IV Total 1354 ml # Voids 2 5 # Bowel Movements 0 0 Result Diagram: 07/10/1651907/10/16 0520 Other Results Item Value Date Time Aspartate Amino Transf (AST/SGOT) 119 U/L H 07/10/16 0520 Total Bilirubin 7.0 MG/DL H 07/10/16 0520 Alanine Aminotransferase (ALT/SGPT) 200 U/L H 07/10/16 0520 Alkaline Phosphatase 118 U/L H 07/10/16 0520 Objective Remarks GENERAL: This is a well-nourished, well-developed patient, in no apparent distress. CARDIOVASCULAR: Regular rate and rhythm RESPIRATORY: Clear to auscultation. Breath sounds equal bilaterally. No wheezes , rales, or rhonchi. GASTROINTESTINAL: Abdomen soft, non-tender, nondistended. Normal active bowel sounds MUSCULOSKELETAL: Extremities without clubbing, cyanosis, or edema. NEURO: Alert & Oriented x4 to person, place, time, situation. Moves all ext x4 A/P Problem List: (1) Acute liver failure ICD Code: K72.00 Status: Acute (2) Acute diverticulitis ICD Code: K57.92 Status: Acute Assessment and Plan 1. Acute liver failure -appreciate GIs assistance with workup for etiology. Check hepatitis panel, AFP level, ELMER, ASMA, AMA which are all pending, Ferritin, Iron Saturation, Alpha 1 Antitrypsin, and, Ceruloplasmin, MRCP results noted and await GIs recommendations, will advance to full liquid diet. Hepatic function tests trending down. 2. Acute diverticulitiscontinue IV antibiotics, Flagyl and Levaquincontinue with pain control, further recommendation per GI. Clear liquids as tolerated and advance to full liquids today, continue with IV fluid hydration supportive care 3. DVT prophylaxisLovenox 4. Elevated blood pressure with possibly underlying hypertension, he states that he's had elevated blood pressures requesting to start on antihypertensive during hospitalization. Will start low-dose HCTZ and monitor blood pressure trends. I did discuss with him that pain also exacerbates baseline blood pressure readings. Discharge Planning Home when cleared by GI. Problem Qualifiers (1) Acute liver failure: Qualified Code: K72.00 - Acute liver failure without hepatic coma Erinn Alford MD Jul 10, 2016 12:17
[2016-07-10] MEDS ORDERED: HYDROCHLOROTHIAZIDE 25 MG TAB PO ONE (12:30)
[2016-07-10] MEDS: ENOXAPARIN SODIUM 40 MG/0.4 ML SYRINGE SQ SCH (12:56)
--- NOTE | 2016-07-10 13:09 | HHI.GIFU ---
Subjective Remarks Resting in bed. No further abdominal pain. No nausea. Has had several loose stools- no blood or mucous. (Gela Flynn) Objective Vitals I&O Vital Signs Date Time Temp Pulse Resp B/P Pulse Ox O2 Delivery O2 Flow Rate FiO2 07/10/16 12:00 98.7 80 18 167/89 95 07/10/16 08:00 Room Air 07/10/16 08:00 100.1 68 18 167/88 95 07/10/16 04:30 156/82 07/10/16 04:00 97.7 71 18 167/87 95 07/10/16 00:28 97.9 70 18 145/91 96 07/09/16 20:00 99.6 71 18 158/80 97 07/09/16 20:00 Room Air 07/09/16 17:03 98.0 86 17 128/72 98 Room Air 07/09/16 16:30 67 17 141/66 96 Room Air 07/09/16 14:30 72 22 156/84 96 Room Air I/O 07/09/16 07/09/16 07/09/16 07/10/16 07/10/16 07/10/16 07:00 15:00 23:00 07:00 15:00 23:00 Intake Total 500 ml 1954 ml Balance 500 ml 1954 ml Intake Oral 500 ml 600 ml IV Total 1354 ml # Voids 2 5 # Bowel Movements 0 0 Laboratory Laboratory Tests Test 07/10/16 05:20 White Blood Count 7.1 Red Blood Count 4.51 Hemoglobin 13.8 Hematocrit 39.4 Mean Corpuscular Volume 87.4 Mean Corpuscular Hemoglobin 30.7 Mean Corpuscular Hemoglobin 35.1 Concent Red Cell Distribution Width 14.0 Platelet Count 204 Mean Platelet Volume 9.3 Neutrophils (%) (Auto) 74.6 Lymphocytes (%) (Auto) 12.5 Monocytes (%) (Auto) 10.5 Eosinophils (%) (Auto) 1.8 Basophils (%) (Auto) 0.6 Neutrophils # (Auto) 5.3 Lymphocytes # (Auto) 0.9 Monocytes # (Auto) 0.7 Eosinophils # (Auto) 0.1 Basophils # (Auto) 0.0 CBC Comment DIFF FINAL Differential Comment Sodium Level 134 Potassium Level 3.8 Chloride Level 101 Carbon Dioxide Level 22.9 Anion Gap 10 Blood Urea Nitrogen 8 Creatinine 1.01 Estimat Glomerular Filtration 75 Rate Random Glucose 125 Calcium Level 8.7 Total Bilirubin 7.0 Aspartate Amino Transf 119 (AST/SGOT) Alanine Aminotransferase 200 (ALT/SGPT) Alkaline Phosphatase 118 Total Protein 7.2 Albumin 2.9 Tumor Marker Alpha Fetoprotein 0.9 Hepatitis A IgM Antibody NEGATIVE Hepatitis B Surface Antigen NEGATIVE Hepatitis B Core IgM Antibody NEGATIVE Hepatitis C Antibody NEGATIVE Date/Time Procedure Status Source Growth 07/09/16 10:20 Aerobic Blood Culture - Preliminary Resulted Blood Peripheral NO GROWTH IN 1 DAY 07/09/16 10:20 Anaerobic Blood Culture - Preliminary Resulted Blood Peripheral NO GROWTH IN 1 DAY Imaging Last Impressions Cholangiopancreatography MRI 07/10/16 0000 Signed Impressions: Service Date/Time: July 08:00 - CONCLUSION: 1. Cholelithiasis again noted with mild gallbladder wall thickening. There is adjacent inflammatory change in the right upper quadrant. 2. Inflammatory change remains in the right upper quadrant adjacent to the hepatic flexure. 3. There are multiple high signal structures in the spleen which are not well- visualized. These are nonspecific but likely represent cavernous hemangiomas. The study was performed without intravenous contrast. 4. No evidence of biliary obstruction. The common bile duct is well visualized is within normal limits with no filling defects. 5. Fatty infiltration of the liver is again noted. 6. Small to moderate sized duodenal diverticulum. Neftali Jacobson MD Gall Bladder Ultrasound 07/09/16 0000 Signed Impressions: Service Date/Time: Saturday, July 09, 2016 09:53 - CONCLUSION: Gallstones otherwise an negative appearing gallbladder. Trace fluid in right upper quadrant. Pillo Chen MD FACR Abdomen/Pelvis CT 07/09/16 0000 Signed Impressions: Service Date/Time: Saturday, July 09, 2016 11:02 - CONCLUSION: 1. Pericolic inflammatory changes in the region of the hepatic flexure with focal wall thickening and apparent inflamed diverticulum consistent with acute diverticulitis of the hepatic flexure. No pericolic abscess is noted. 2. Enlarged fatty liver. 3. Cholelithiasis. 4. Enlarged prostate. 5. 18 mm nonspecific mass within the inferior aspect of the spleen. 6. Fibrotic scarring and/or atelectasis within the right lung base. Brock Orta MD Physical Exam HEENT: Normocephalic; atraumatic; no jaundice. Throat is clear. NECK: Neck is supple, no JVD, no lymphadenopathy. CHEST: CTA CARDIAC: Regular rate and rhythm with no murmur gallop or rubs. ABDOMEN: Soft, nondistended, mild RUQ tendernes- very mild; no hepatosplenomegaly; bowel sounds are present in all four quadrants. EXTREMITIES: No clubbing, cyanosis, or edema. SKIN: Normal; no rash; no jaundice. MERCHANDISING PROFESSOR: No focal deficits; alert and oriented times three. (Gela Flynn) Assessment and Plan Plan ASSESSMENT: - Acute diverticulitis. CT with pericolic inflammatory changes in the region of the hepatic flexure with focal wall thickening and apparent inflamed diverticulum consistent with acute diverticulitis of the hepatic flexure. No pericolic abscess is noted. Will add Flagyl/Levaquin. - Elevated LFTs. Gall Bladder Ultrasound (07/09/16)----> Gallstones otherwise an negative appearing gallbladder. Trace fluid in right upper quadrant. Abdomen/Pelvis CT (07/09/16)----> 1. Pericolic inflammatory changes in the region of the hepatic flexure with focal wall thickening and apparent inflamed diverticulum consistent with acute diverticulitis of the hepatic flexure. No pericolic abscess is noted. 2. Enlarged fatty liver. 3. Cholelithiasis. 4. Enlarged prostate. 5. 18 mm nonspecific mass within the inferior aspect of the spleen. 6. Fibrotic scarring and/or atelectasis within the right lung base. MRCP (07/10/16)---> 1. Cholelithiasis again noted with mild gallbladder wall thickening. There is adjacent inflammatory change in the right upper quadrant. 2. Inflammatory change remains in the right upper quadrant adjacent to the hepatic flexure. 3. There are multiple high signal structures in the spleen which are not well-visualized. These are nonspecific but likely represent cavernous hemangiomas. The study was performed without intravenous contrast. 4. No evidence of biliary obstruction. The common bile duct is well visualized is within normal limits with no filling defects. 5. Fatty infiltration of the liver is again noted. 6. Small to moderate sized duodenal diverticulum. Recent Tylenol use with ETOH, but recommended dose. Acetaminophen < 2.0. LFT T. Bili 7.0, AST 119, ALT 200, ALK phosph 118. AFP 0.9, Ferritin 1562, Iron saturation 9.2%, Ceruloplasmin pending, Alpha 1 antitrypsin pending, hepatitis panel pending, ELMER/ASMA/AMA pending. - Abdominal pain. Improved. Likely related to above. - Diarrhea, will get stool studies. - Fevers. T. Max 101. BCx no growth 1 day - GERD. PPI - Mild leukocytosis. WBC 7.1 - Generalized malaise, fatigue, fevers x 1 month. Reports fiance with these symptoms also. No recent travel, suspicious food. They eat shrimp once a week , no other shellfish. No ivda, tattoos. PLAN: - [facility] - Flagyl/Levaquin - PPI - Await Hepatitis panel - Await ELMER, ASMA, AMA - Await Alpha 1 Antitrypsin, Ceruloplasmin - Monitor labs - Stool studies - Supportive care - Further recommendations to follow based on results of above - Pt seen and examined by Dr. Del Valle and myself and this note is written on his behalf (Gela Flynn) Physician Comments Seen and examined with Ms. Gee GREEN, doing better today, but LFTs still elevated. MRCP reviewed. On treatmnet for diverticulitis. If no improvement in LFTs consider HIDA. (Celeste Del Valle MD) Gela Flynn Jul 10, 2016 13:09 Celeste Del Valle MD Jul 10, 2016 16:51
[2016-07-10 17:06] LABS: INTERNATIONAL NORMALIZED RATIO 1.1 RATIO
[2016-07-10] MEDS: LEVOFLOXACIN 500 MG PREMIX INJ 100 ML IV SCH (17:28)
[2016-07-10] MEDS: PANTOPRAZOLE SODIUM 40 MG VIAL IV PUSH SCH (17:28)
[2016-07-10 19:09] LABS: C. DIFF EPI 027 PRESUMPTIVE NEGATIVE (NEGATIVE); C. DIFF TOXIN PCR NEGATIVE (NEGATIVE)
[2016-07-11] VITALS: BP 154/92; PULSE 67; RESP 20; TEMP 97.5; O2SAT 96
[2016-07-11] MEDS: SODIUM CHLOR 0.9% 1000 ML INJ 1,000 ML IV SCH (03:33)
[2016-07-11] MEDS: metroNIDAZOLE 500 MG INJ 100 ML IV SCH (03:36)
[2016-07-11 04:00] VITALS: BP 150/78; PULSE 65; RESP 18; TEMP 97.6; O2SAT 99
[2016-07-11 07:06] LABS: INDIRECT BILIRUBIN 1.3 MG/DL (0.0-0.8)
[2016-07-11 08:25] VITALS: BP 159/96; PULSE 61; RESP 20; TEMP 98.3; O2SAT 96
[2016-07-11] MEDS: SODIUM CHLORIDE 0.9% FLUSH 5 ML FLUSH FLUSH SCH (08:56)
[2016-07-11] MEDS ORDERED: HYDROCHLOROTHIAZIDE 25 MG TAB PO SCH (09:00)
--- NOTE | 2016-07-11 10:16 | HHI.PR ---
Subjective Remarks Follow-up acute diverticulitis/acute liver injury 07/11/16-patient seen and examined, reports significant improvement of abdominal pain. Tolerated by mouth without any complication nausea and vomiting. LFTs trending down. Hepatitis profile negative. Objective Vitals Vital Signs Date Time Temp Pulse Resp B/P Pulse Ox O2 Delivery O2 Flow Rate FiO2 07/11/16 08:25 98.3 61 20 159/96 96 07/11/16 04:00 97.6 65 18 150/78 99 07/11/16 00:00 97.5 67 20 154/92 96 07/10/16 20:00 97.9 86 18 152/89 96 07/10/16 19:30 Room Air 07/10/16 16:00 99.7 71 18 123/77 95 07/10/16 12:00 98.7 80 18 167/89 95 I/O 07/10/16 07/10/16 07/10/16 07/11/16 07/11/16 07/11/16 07:00 15:00 23:00 07:00 15:00 23:00 Intake Total 1954 ml 1693 ml 1560 ml 800 ml Output Total 2500 ml 1800 ml 900 ml Balance 1954 ml -807 ml -240 ml -100 ml Intake Oral 600 ml 720 ml 760 ml 0 ml IV Total 1354 ml 973 ml 800 ml 800 ml Output Urine Total 2500 ml 1800 ml 900 ml # Voids 5 # Bowel Movements 0 1 0 Result Diagram: 07/10/16 0520 07/10/16 0520 Imaging Last Impressions Cholangiopancreatography MRI 07/10/16 0000 Signed Impressions: Service Date/Time: July 08:00 - CONCLUSION: 1. Cholelithiasis again noted with mild gallbladder wall thickening. There is adjacent inflammatory change in the right upper quadrant. 2. Inflammatory change remains in the right upper quadrant adjacent to the hepatic flexure. 3. There are multiple high signal structures in the spleen which are not well- visualized. These are nonspecific but likely represent cavernous hemangiomas. The study was performed without intravenous contrast. 4. No evidence of biliary obstruction. The common bile duct is well visualized is within normal limits with no filling defects. 5. Fatty infiltration of the liver is again noted. 6. Small to moderate sized duodenal diverticulum. Neftali Jacobson MD Gall Bladder Ultrasound 07/09/16 0000 Signed Impressions: Service Date/Time: Saturday, July 09, 2016 09:53 - CONCLUSION: Gallstones otherwise an negative appearing gallbladder. Trace fluid in right upper quadrant. Pillo Chen MD FACR Abdomen/Pelvis CT 07/09/16 0000 Signed Impressions: Service Date/Time: Saturday, July 09, 2016 11:02 - CONCLUSION: 1. Pericolic inflammatory changes in the region of the hepatic flexure with focal wall thickening and apparent inflamed diverticulum consistent with acute diverticulitis of the hepatic flexure. No pericolic abscess is noted. 2. Enlarged fatty liver. 3. Cholelithiasis. 4. Enlarged prostate. 5. 18 mm nonspecific mass within the inferior aspect of the spleen. 6. Fibrotic scarring and/or atelectasis within the right lung base. Brock Orta MD Objective Remarks GENERAL: NAD SKIN: Warm and dry. HEAD: Normocephalic. EYES: No scleral icterus. No injection or drainage. NECK: Supple, trachea midline. No JVD or lymphadenopathy. CARDIOVASCULAR: Regular rate and rhythm without murmurs, gallops, or rubs. RESPIRATORY: Breath sounds equal bilaterally. No accessory muscle use. GASTROINTESTINAL: Abdomen soft, non-tender, nondistended. MUSCULOSKELETAL: No cyanosis, or edema. BACK: Nontender without obvious deformity. No CVA tenderness. A/P Problem List: (1) Acute liver failure ICD Code: K72.00 Status: Acute (2) Acute diverticulitis ICD Code: K57.92 Status: Acute Assessment and Plan 61-year-old male with 1. Acute liver failure -appreciate GIs assistance with workup for etiology. hepatitis panel negative, AFP level, ELMER, ASMA, AMA which are all pending, Ferritin, Iron Saturation, Alpha 1 Antitrypsin, and, Ceruloplasmin, MRCP results noted without any evidence of biliary obstruction. Tolerating regular diet. Hepatic function tests trending down. 2. Acute diverticulitiscontinue IV antibiotics, Flagyl and Levaquincontinue with pain control, further recommendation per GI. Patient tolerated regular diet, will Hep-Lock IV fluid. 3. DVT prophylaxisLovenox 4. Elevated blood pressure with possibly underlying hypertension: Continue low- dose HCTZ Discharge Planning Discharge home pending clearance from gastroenterology Problem Qualifiers (1) Acute liver failure: Qualified Code: K72.00 - Acute liver failure without hepatic coma Benjamin Mon MD Jul 11, 2016 10:16
[2016-07-11] MEDS ORDERED: LEVA500T PO (11:03)
[2016-07-11] MEDS ORDERED: METR500T10 PO (11:03)
[2016-07-11] MEDS ORDERED: PROT40TA PO (11:10)
--- NOTE | 2016-07-11 11:22 | HHI.GIFU ---
Subjective Remarks Resting in bed. No n/v. No abdominal pain. 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) Objective Vitals I&O Vital Signs Date Time Temp Pulse Resp B/P Pulse Ox O2 Delivery O2 Flow Rate FiO2 07/11/16 09:02 Room Air 07/11/16 08:25 98.3 61 20 159/96 96 07/11/16 04:00 97.6 65 18 150/78 99 07/11/16 00:00 97.5 67 20 154/92 96 07/10/16 20:00 97.9 86 18 152/89 96 07/10/16 19:30 Room Air 07/10/16 16:00 99.7 71 18 123/77 95 07/10/16 12:00 98.7 80 18 167/89 95 I/O 07/10/16 07/10/16 07/10/16 07/11/16 07/11/16 07/11/16 07:00 15:00 23:00 07:00 15:00 23:00 Intake Total 1954 ml 1693 ml 1560 ml 800 ml Output Total 2500 ml 1800 ml 900 ml Balance 1954 ml -807 ml -240 ml -100 ml Intake Oral 600 ml 720 ml 760 ml 0 ml IV Total 1354 ml 973 ml 800 ml 800 ml Output Urine Total 2500 ml 1800 ml 900 ml # Voids 5 # Bowel Movements 0 1 0 Laboratory Laboratory Tests Test 07/10/16 07/10/16 07/11/16 16:00 16:21 06:12 Stool C. difficile Toxin (PCR) NEGATIVE Stl C. difficile Toxin PRESUMPTIVE Epiderm 027 NEGATIVE Prothrombin Time 12.0 Prothromb Time International 1.1 Ratio Total Bilirubin 3.0 Direct Bilirubin 1.7 Indirect Bilirubin 1.3 Aspartate Amino Transf 53 (AST/SGOT) Alanine Aminotransferase 156 (ALT/SGPT) Alkaline Phosphatase 115 Total Protein 7.1 Albumin 2.8 Date/Time Procedure Status Source Growth 07/10/16 16:00 Cryptosporidium Exam Resulted Stool Stool Pending 07/10/16 16:00 Stool Pus (CLARA) - Final Resulted Stool Stool RARE WBC 07/10/16 16:00 Giardia Antigen (CLARA) Resulted Stool Stool Pending 07/09/16 10:20 Aerobic Blood Culture - Preliminary Resulted Blood Peripheral NO GROWTH IN 2 DAYS 07/09/16 10:20 Anaerobic Blood Culture - Preliminary Resulted Blood Peripheral NO GROWTH IN 2 DAYS Imaging Last Impressions Cholangiopancreatography MRI 07/10/16 0000 Signed Impressions: Service Date/Time: July 08:00 - CONCLUSION: 1. Cholelithiasis again noted with mild gallbladder wall thickening. There is adjacent inflammatory change in the right upper quadrant. 2. Inflammatory change remains in the right upper quadrant adjacent to the hepatic flexure. 3. There are multiple high signal structures in the spleen which are not well- visualized. These are nonspecific but likely represent cavernous hemangiomas. The study was performed without intravenous contrast. 4. No evidence of biliary obstruction. The common bile duct is well visualized is within normal limits with no filling defects. 5. Fatty infiltration of the liver is again noted. 6. Small to moderate sized duodenal diverticulum. Neftali Jacobson MD Gall Bladder Ultrasound 07/09/16 0000 Signed Impressions: Service Date/Time: Saturday, July 09, 2016 09:53 - CONCLUSION: Gallstones otherwise an negative appearing gallbladder. Trace fluid in right upper quadrant. Pillo Chen MD FACR Abdomen/Pelvis CT 07/09/16 0000 Signed Impressions: Service Date/Time: Saturday, July 09, 2016 11:02 - CONCLUSION: 1. Pericolic inflammatory changes in the region of the hepatic flexure with focal wall thickening and apparent inflamed diverticulum consistent with acute diverticulitis of the hepatic flexure. No pericolic abscess is noted. 2. Enlarged fatty liver. 3. Cholelithiasis. 4. Enlarged prostate. 5. 18 mm nonspecific mass within the inferior aspect of the spleen. 6. Fibrotic scarring and/or atelectasis within the right lung base. Brock Orta MD Physical Exam HEENT: Normocephalic; atraumatic; no jaundice. Throat is clear. NECK: Neck is supple, no JVD, no lymphadenopathy. CHEST: CTA CARDIAC: RRR ABDOMEN: Soft, nondistended, nontender; no hepatosplenomegaly; bowel sounds are present in all four quadrants. EXTREMITIES: No clubbing, cyanosis, or edema. SKIN: Normal; no rash; no jaundice. OUTSIDE REPAIRER SPECIAL: No focal deficits; alert and oriented times three. (Gela Flynn) Assessment and Plan Plan ASSESSMENT: - Acute diverticulitis. CT with pericolic inflammatory changes in the region of the hepatic flexure with focal wall thickening and apparent inflamed diverticulum consistent with acute diverticulitis of the hepatic flexure. No pericolic abscess is noted. Flagyl/Levaquin x 10 days total - Elevated LFTs. Gall Bladder Ultrasound (07/09/16)----> Gallstones otherwise an negative appearing gallbladder. Trace fluid in right upper quadrant. Abdomen/Pelvis CT (07/09/16)----> 1. Pericolic inflammatory changes in the region of the hepatic flexure with focal wall thickening and apparent inflamed diverticulum consistent with acute diverticulitis of the hepatic flexure. No pericolic abscess is noted. 2. Enlarged fatty liver. 3. Cholelithiasis. 4. Enlarged prostate. 5. 18 mm nonspecific mass within the inferior aspect of the spleen. 6. Fibrotic scarring and/or atelectasis within the right lung base. MRCP (07/10/16)---> 1. Cholelithiasis again noted with mild gallbladder wall thickening. There is adjacent inflammatory change in the right upper quadrant. 2. Inflammatory change remains in the right upper quadrant adjacent to the hepatic flexure. 3. There are multiple high signal structures in the spleen which are not well-visualized. These are nonspecific but likely represent cavernous hemangiomas. The study was performed without intravenous contrast. 4. No evidence of biliary obstruction. The common bile duct is well visualized is within normal limits with no filling defects. 5. Fatty infiltration of the liver is again noted. 6. Small to moderate sized duodenal diverticulum. Recent Tylenol use with ETOH, but recommended dose. Acetaminophen < 2.0. LFT improving T. Bili 3.0, AST 53, ALT 156, ALK phosph 115. AFP 0.9, Ferritin 1562, Iron saturation 9.2%, Ceruloplasmin pending, Alpha 1 antitrypsin 226, hepatitis panel negative, ELMER/ASMA/AMA pending. NO ETOH. Likely combination from infection, medication, ETOH on underlying fatty liver disease. D/W patient importance of complete ETOH cessation. - Abdominal pain. Improved. Likely related to above. - Diarrhea, will get stool studies. CDiff negative. - Fevers. Afebrile - GERD. PPI - Mild leukocytosis. WBC 7.1 - Generalized malaise, fatigue, fevers x 1 month. Reports fiance with these symptoms also. No recent travel, suspicious food. They eat shrimp once a week , no other shellfish. No ivda, tattoos. PLAN: - Okay to d/c home on lowfat, low salt diet- d/w pt - No popcorn, nuts, seeds- d/w pt - Absolute no ETOH use- d/w pt - Flagyl/Levaquin x 10 days total - Protonix 40mg po daily - Await ELMER, ASMA, AMA, Ceruloplasmin - LFT in one week - EGD/Colonoscopy in 6 weeks - FU MELO in 2 weeks - Supportive care - Further recommendations to follow based on results of above - Pt seen and examined by Dr. Del Valle and myself and this note is written on his behalf (Gela Flynn) Physician Comments Doing well today, no abdominal pain. LFTs improving. Can dc home with gi fu in 02 weeks. Thank you (Celeste Del Valle MD) Gela Flynn Jul 11, 2016 11:22 Celeste Del Valle MD Jul 11, 2016 16:35
[2016-07-11] MEDS ORDERED: HYDR25TA5 PO (11:51)
--- NOTE | 2016-07-11 11:54 | HHI.DS ---
Discharge Summary Admission Date Jul 09, 2016 at 11:56 Discharge Date: Jul 11, 2016 Admitting Diagnosis Acute Liver failure, Diverticulitis. (1) Acute liver failure ICD Code: K72.00 (2) Acute diverticulitis ICD Code: K57.92 Procedures none Brief History - From Admission 61-year-old white male with history of GERD was referred to the emergency room by his urgent care physician after having symptoms of worsening yellowing eyes and dark urine that happened during the past 24 hours. Prior to that patient has been struggling the past 6-8 months having a nonspecific epigastric abdominal pain radiating towards his right upper quadrant associated with vomiting which would last a period of 3-4 days and resolve on its own. This has happened 4 times in the past 6-8 months. He has not had any extensive abdominal pain workup in the past. He reports some few episodes of diarrhea along with associated nausea and nonbilious vomiting. He also reports generalized muscle aches and joint aches. He has not been taking any over-the- counter medications other than Prilosec and recent [place] for upper respiratory infection. In addition, he does not drink alcohol on daily basis but does drink a little heavier during the weekends. CBC/BMP: 07/10/16 0520 07/10/16 0520 Significant Findings Laboratory Tests Test 07/09/16 07/09/16 07/09/16 07/10/16 07:23 10:15 12:40 05:20 White Blood Count 11.8 TH/MM3 (4.0-11.0) Neutrophils (%) (Auto) 77.3 % 74.6 % (16.0-70.0) (16.0-70.0) Monocytes (%) (Auto) 9.9 % (0.0-8.0) 10.5 % (0.0-8.0) Neutrophils # (Auto) 9.1 TH/MM3 (1.8-7.7) Monocytes # (Auto) 1.2 TH/MM3 (0-0.9) Urine Color CHELSEA (YELLW/STRAW) Urine Turbidity HAZY (CLEAR) Urine Protein 30 mg/dL (NEG-TRACE) Urine Glucose (UA) 70 mg/dL (NEG) Urine Ketones 10 mg/dL (NEG) Urine Occult Blood SMALL (NEG) Urine Bilirubin MOD (NEG) Urine Bacteria RARE /hpf (NONE) Urine Mucus MOD /lpf (OCC) Sodium Level 130 MEQ/L 134 MEQ/L (136-145) (136-145) Chloride Level 97 MEQ/L (98-107) Estimat Glomerular Filtration 57 ML/MIN (>89) 75 ML/MIN (>89) Rate Random Glucose 151 MG/DL 125 MG/DL (74-106) (74-106) Iron Level 28 MCG/DL (65-175) Percent Iron Saturation 9.2 % (20-50) Ferritin 1562 NG/ML (26-388) Total Bilirubin 9.9 MG/DL 7.0 MG/DL (0.2-1.0) (0.2-1.0) Aspartate Amino Transf 155 U/L (15-37) 119 U/L (15-37) (AST/SGOT) Alanine Aminotransferase 223 U/L (12-78) 200 U/L (12-78) (ALT/SGPT) Alkaline Phosphatase 130 U/L 118 U/L (45-117) (45-117) Acetaminophen Level LESS THAN 2.0 MCG/ML (10.0-30.0) Ammonia LESS THAN 10 MCMOL/L (11-32) Prothrombin Time 12.4 SEC (9.8-11.6) Lymphocytes # (Auto) 0.9 TH/MM3 (1.0-4.8) Albumin 2.9 GM/DL (3.4-5.0) Test 07/10/16 07/11/16 16:21 06:12 Prothrombin Time 12.0 SEC (9.8-11.6) Total Bilirubin 3.0 MG/DL (0.2-1.0) Direct Bilirubin 1.7 MG/DL (0.0-0.2) Indirect Bilirubin 1.3 MG/DL (0.0-0.8) Aspartate Amino Transf 53 U/L (15-37) (AST/SGOT) Alanine Aminotransferase 156 U/L (12-78) (ALT/SGPT) Albumin 2.8 GM/DL (3.4-5.0) Imaging Last Impressions Cholangiopancreatography MRI 07/10/16 Signed Impressions: Service Date/Time: July 08:00 - CONCLUSION: 1. Cholelithiasis again noted with mild gallbladder wall thickening. There is adjacent inflammatory change in the right upper quadrant. 2. Inflammatory change remains in the right upper quadrant adjacent to the hepatic flexure. 3. There are multiple high signal structures in the spleen which are not well- visualized. These are nonspecific but likely represent cavernous hemangiomas. The study was performed without intravenous contrast. 4. No evidence of biliary obstruction. The common bile duct is well visualized is within normal limits with no filling defects. 5. Fatty infiltration of the liver is again noted. 6. Small to moderate sized duodenal diverticulum. Neftali Jacobson MD Gall Bladder Ultrasound 07/09/16 Signed Impressions: Service Date/Time: Saturday, July 09, 2016 09:53 - CONCLUSION: Gallstones otherwise an negative appearing gallbladder. Trace fluid in right upper quadrant. Pillo Chen MD FACR Abdomen/Pelvis CT 07/09/16 Signed Impressions: Service Date/Time: Saturday, July 09, 2016 11:02 - CONCLUSION: 1. Pericolic inflammatory changes in the region of the hepatic flexure with focal wall thickening and apparent inflamed diverticulum consistent with acute diverticulitis of the hepatic flexure. No pericolic abscess is noted. 2. Enlarged fatty liver. 3. Cholelithiasis. 4. Enlarged prostate. 5. 18 mm nonspecific mass within the inferior aspect of the spleen. 6. Fibrotic scarring and/or atelectasis within the right lung base. Brock Orta MD PE at Discharge GENERAL: NAD SKIN: Warm and dry. HEAD: Normocephalic. EYES: No scleral icterus. No injection or drainage. NECK: Supple, trachea midline. No JVD or lymphadenopathy. CARDIOVASCULAR: Regular rate and rhythm without murmurs, gallops, or rubs. RESPIRATORY: Breath sounds equal bilaterally. No accessory muscle use. GASTROINTESTINAL: Abdomen soft, non-tender, nondistended. MUSCULOSKELETAL: No cyanosis, or edema. BACK: Nontender without obvious deformity. No CVA tenderness. Hospital Course 1. Acute liver failure -appreciate GIs. hepatitis panel negative, AFP level , ELMER, ASMA, AMA which are all pending, Ferritin, Iron Saturation, Alpha 1 Antitrypsin, and, Ceruloplasmin, MRCP results noted without any evidence of biliary obstruction. Tolerating regular diet. Hepatic function tests trending down. 2. Acute diverticulitisTreated with IV antibiotics, Flagyl and Levaquin continue with pain control, further recommendation per GI. 3. DVT prophylaxisLovenox 4. Elevated blood pressure with possibly underlying hypertension: started on low-dose HCTZ Pt Condition on Discharge: Stable Discharge Disposition: Discharge Home Discharge Time: <= 30 minutes Discharge Instructions DIET: Follow Instructions for: Heart Healthy Diet Activities you can perform: Regular-No Restrictions Follow up Referrals: Gastroenterology - 2 Weeks @ [facility] PCP Follow-up - 1 Week New Medications: Metronidazole (Metronidazole) 500 Mg Tab 500 MG PO TID Infection Days 8 Ref 0 TAB Pantoprazole (Protonix) 40 Mg Tab 40 MG PO DAILY Reflux #30 Ref 0 TAB Hydrochlorothiazide (Hydrochlorothiazide) 25 Mg Tab 25 MG PO DAILY Blood Pressure Management #30 TAB Levofloxacin (Levaquin) 500 Mg Tab 500 MG PO DAILY@18 diverticulitis Days 8 TAB Benjamin Mon MD Jul 11, 2016 11:54
[2016-07-11 12:20] VITALS: BP 145/86; PULSE 71; RESP 19; TEMP 97.7; O2SAT 96
[2016-07-11 14:38] LABS: ANA SCREEN NEG (NEG)
[2016-07-11] MEDS ORDERED: LEVOFLOXACIN 500 MG TAB PO SCH (18:00)
[2016-07-14 15:57] LABS: MITOCHONDRIAL ABS LESS THAN 20.0 U (())
== END 2016-07-11 13:50 | disposition home or self-care (01) | DRG 391 ==
LOC: NEPD 06:57 → NEDA 11:56 → N04B 18:51
PROVIDERS: ADMIT Hospitalist; ATTEND Hospitalist
DX: K57.32 Diverticulitis of large intestine without perforation or abscess without bleeding (principal); K72.00 Acute and subacute hepatic failure without coma; K80.20 Calculus of gallbladder without cholecystitis without obstruction; D18.03 Hemangioma of intra-abdominal structures; K57.10 Diverticulosis of small intestine without perforation or abscess without bleeding; I10 Essential (primary) hypertension; K21.9 Gastro-esophageal reflux disease without esophagitis; N40.0 Benign prostatic hyperplasia without lower urinary tract symptoms; K76.0 Fatty (change of) liver, not elsewhere classified; Z82.3 Family history of stroke; Z82.49 Family history of ischemic heart disease and other diseases of the circulatory system; Z83.3 Family history of diabetes mellitus; Z23 Encounter for immunization
CPT/HCPCS: 74177; 74181; 76377; 76705; 80053; 80074; 80076; 80329; 81001; 82103; 82105; 82140; 82390; 82728; 83520; 83540; 83550; 83605; 83690; 85025; 85610; 85730; 86038; 86256; 87040; 87205; 87328; 87329; 87493; 90471; 90472; 90686; 90732; 96365; C9113; G0008; G0009; G0480; J0295; J1650; J1956; J7030; Q2038; Q9967